=== PATIENT | female | born 1955 | race African-American/Black ===

== ENCOUNTER 2023-11-20 20:54 | Inpatient (IN) | payer MEDICARE, SELFPAY ==
[2023-11-20 21:17] VITALS: BMI 37.5
--- NOTE | 2023-11-20 21:34 | ADMGEN ---
This patient, Lesly Chacon, was admitted to 2nd Floor Room 204-1. Patient oriented to hospital policies and general routines including ID bracelet, bed and alarms, visiting hours, pain management, procedures, bathroom and other care routines, personal items, smoking policy, room service/diet, and visiting hours. Information on how to activate the Rapid Response Team has been discussed. Patient/Family are encouraged to report perceived risks to care and to ask questions if they do not understand what they are told or what they should do.
--- NOTE | 2023-11-20 21:37 | PC.NURSE ---
Patient arrived to unit at 2114.
[2023-11-20 22:03] VITALS: O2SAT 98
[2023-11-20 22:41] VITALS: BP 94/56; PULSE 84; RESP 16; TEMP 36.4; O2SAT 96
[2023-11-21] VITALS: RESP 16; TEMP 36.5
[2023-11-21 08:00] VITALS: BP 88/53; PULSE 97; RESP 14; TEMP 37; O2SAT 97
[2023-11-21 09:11] LABS: Hematocrit 27.7 % (35.0-42.0); Hemoglobin 8.7 g/dL (11.7-13.8); Mean Corpuscular HGB Conc 31.4 g/dL (32.0-36.0); Mean Corpuscular Hemoglobin 26.8 pg (27.0-31.0); Mean Corpuscular Volume 85.2 fL (78.0-102.0); Mean Platelet Volume 11.7 fl (9.2-11.8); Platelet Count Result 210 K/mm3 (150-420); Red Blood Count 3.25 M/mm3 (4.20-5.40); Red Cell Distribution Width 23.8 % (11.6-14.4); White Blood Count 12.3 K/mm3 (4.8-10.8)
[2023-11-21 09:20] LABS: Anion Gap 4 mmol/L (8-16); Blood Urea Nitrogen 15 mg/dL (7-18); Calcium 8.6 mg/dL (8.5-10.1); Carbon Dioxide 34 mmol/L (21-32); Chloride 98 mmol/L (98-108); Estimated CRCL calculation 45 ml/min; Estimated Glomerular Filt Rate 54; Glucose 154 mg/dL (70-99); Osmolality Calculated 285 mOsm/kg (285-295); Potassium 3.6 mmol/L (3.5-5.1); Sodium 136 mmol/L (136-145)
--- NOTE | 2023-11-21 10:23 | PM.IMHP ---
H&P: HPI History of Present Illness Date/Time: 11/21/23 10:23 Chief Complaint: Swing Patient , Massive PE Narrative: This is a 68 year old female that has been admitted to our swing bed following a prolonged hospitalization due to a massive pulmonary embolism accompanied by heart strain. Although acute treatment for pulmonary embolus has been completed, Mrs Chacon still is experiencing overall weakness. Additionally she has a past medical history of Myocardial infarct, Diabetes, congestive heart failure. Patient has reported to myself that she is unable to ambulate or she has not ambulated in a few weeks and does not feel like she is capable of ambulation at this time.Patient blood pressure seems to fluctuate between hypotension or baseline in the 90 systolic with diastolic noted to be in the 50's. Positive bowel sounds noted. Patient legs demonstrate weakness upon examination . Despite these challenges , the patient is able to assist with her ADL's. Patient is able to eat and drink without any difficulties, no shortness of breath or any other complaints noted at this time. We will continue to monitor patient her labs await on her assessment by PT/OT for their assessment of her abilities and the plan of care. Review of Systems Review of Systems: weakness, strength All systems reviewed & are unremarkable except as noted in HPI and below PMFSH Family History Family History (Updated 11/20/23 @ 21:28 by Rose Restrepo RN) Other Acute myocardial infarction Congestive heart failure Diabetes mellitus History of blood clots Social History Social History Smoking status: Never smoker Alcohol intake: never Substance use: never Substance use type: does not use Do You Feel Safe in your Home?: Yes Lack of Transportation: No Lack of Food: Never True Current Housing: I Have Housing Concerned About Future Housing: No Difficulty Paying Gas/Electric Bills: No Difficulty Paying for Meds: No Currently Unemployed: No Education: Master's Degree or Higher Difficulty w/ Childcare or Family Care: No Spiritual care concerns: No Meds Home Medications and Allergies Home Medications Medication Instructions Recorded Confirmed Type acetaminophen 325 mg tablet 650 mg PO Q4H PRN Pain 11/21/23 11/21/23 History alendronate 70 mg tablet 70 mg PO WEEKLY 11/21/23 11/21/23 History amiloride 5 mg tablet 5 mg PO BID 11/21/23 11/21/23 History apixaban 5 mg tablet 5 mg PO BID 11/21/23 11/21/23 History bisacodyl 10 mg rectal suppository 10 mg RECTAL DAILY PRN Constipation 11/21/23 11/21/23 History (Dulcolax (bisacodyl)) bumetanide 2 mg tablet 2 mg PO BID 11/21/23 11/21/23 History cholecalciferol (vitamin D3) 125 5,000 unit PO DAILY 11/21/23 11/21/23 History mcg (5,000 unit) tablet (Vitamin D3) ferrous sulfate 325 mg (65 mg 325 mg PO BID 11/21/23 11/21/23 History iron) tablet folic acid 1 mg tablet 1 mg PO DAILY 11/21/23 11/21/23 History gabapentin 100 mg capsule 100 mg PO TID 11/21/23 11/21/23 History hydrocortisone 10 mg tablet 10 mg PO BID 11/21/23 11/21/23 History levothyroxine 25 mcg tablet 25 mcg PO QAM 11/21/23 11/21/23 History (Synthroid) miconazole nitrate 2 % topical 1 applic topical BID 11/21/23 11/21/23 History cream midodrine 10 mg tablet 10 mg PO TID 11/21/23 11/21/23 History omeprazole 20 mg tablet,delayed 20 mg PO DAILY 11/21/23 11/21/23 History release polyethylene glycol 3350 17 17 g PO DAILY 11/21/23 11/21/23 History gram/dose oral powder (Miralax) potassium chloride 20 mEq 20 meq PO DAILY 11/21/23 11/23/23 History tablet,extended release potassium phosphate, monobasic 500 500 mg PO BID 11/21/23 11/21/23 History mg soluble tablet (K-Phos Original) rosuvastatin 20 mg tablet 20 mg PO DAILY 11/21/23 11/21/23 History senna-docusate sodium tablet 8.6 - 50 tablet PO BID 11/21/23 11/21/23 History thiamine HCl (vitamin B1) 100 mg 100 mg PO DAILY 11/21/23 11/21/23 History
[2023-11-21] MEDS: MIDODRINE HCL 2.5 MG TABLET 10 MG PO ×2 (13:08→18:05)
[2023-11-21] MEDS: PANTOPRAZOLE 40 MG TABLET PO (13:09)
[2023-11-21] MEDS: POTASSIUM/PHOSPHORUS/SODIUM 1.5 GM PACKET 1 PACKET PO (13:09)
[2023-11-21] MEDS: GABAPENTIN 100 MG CAPSULE PO ×2 (13:09→18:05)
[2023-11-21 16:30] VITALS: BP 88/56; PULSE 94; RESP 16; TEMP 36.9; O2SAT 98
[2023-11-21] MEDS: FERROUS SULFATE 325 MG TABLET DR BY MOUTH (18:05)
[2023-11-21] MEDS: APIXABAN 2.5 MG TABLET 5 MG PO (18:05)
[2023-11-21] MEDS: HYDROCORTISONE 10 MG TABLET PO (18:06)
[2023-11-21] MEDS: BUMETANIDE 1 MG TABLET 2 MG PO (18:06)
[2023-11-21] MEDS: MICONAZOLE NITRATE 2% CREAM 30 GM TUBE 1 APPLIC TOPICAL (18:07)
[2023-11-21 23:45] VITALS: BP 81/44; PULSE 88; RESP 13; TEMP 37.1; O2SAT 96
[2023-11-22] MEDS: LEVOTHYROXINE SODIUM 25 MCG TABLET PO (07:08)
[2023-11-22 08:00] VITALS: BP 92/62; PULSE 98; RESP 14; TEMP 36.2; O2SAT 99
[2023-11-22] MEDS: FERROUS SULFATE 325 MG TABLET DR BY MOUTH ×2 (08:11→18:29)
[2023-11-22] MEDS: MIDODRINE HCL 2.5 MG TABLET 10 MG PO ×3 (08:11→17:00)
[2023-11-22] MEDS: FOLIC ACID 1 MG TABLET PO (08:58)
[2023-11-22] MEDS: ROSUVASTATIN 10 MG TABLET 20 MG PO (08:58)
[2023-11-22] MEDS: APIXABAN 2.5 MG TABLET 5 MG PO ×2 (08:58→18:29)
[2023-11-22] MEDS: PANTOPRAZOLE 40 MG TABLET PO (08:59)
[2023-11-22] MEDS: POTASSIUM/PHOSPHORUS/SODIUM 1.5 GM PACKET 1 PACKET PO (08:59)
[2023-11-22] MEDS: polyethylene glycoL 3350 17 GM POWD.PACK PO (08:59)
[2023-11-22] MEDS: GABAPENTIN 100 MG CAPSULE PO ×3 (08:59→18:29)
[2023-11-22] MEDS: HYDROCORTISONE 10 MG TABLET PO ×2 (09:00→18:29)
[2023-11-22] MEDS: MICONAZOLE NITRATE 2% CREAM 30 GM TUBE 1 APPLIC TOPICAL (09:00)
[2023-11-22] MEDS: THIAMINE HCL 100 MG TABLET PO (09:02)
[2023-11-22] MEDS: BUMETANIDE 1 MG TABLET 2 MG PO ×2 (09:02→18:30)
[2023-11-22 16:35] VITALS: BP 91/51; PULSE 87; RESP 16; TEMP 36.4; O2SAT 98
[2023-11-22] MEDS: aMILoride HCL 5 MG TABLET PO (18:29)
[2023-11-23] VITALS: BP 92/56; PULSE 79; RESP 16; TEMP 36.3; O2SAT 98
[2023-11-23] MEDS: LEVOTHYROXINE SODIUM 25 MCG TABLET PO (06:23)
[2023-11-23 08:00] VITALS: BP 87/50; PULSE 85; RESP 18; TEMP 36.5; O2SAT 98
[2023-11-23] MEDS: polyethylene glycoL 3350 17 GM POWD.PACK PO (08:18)
[2023-11-23] MEDS: POTASSIUM/PHOSPHORUS/SODIUM 1.5 GM PACKET 1 PACKET PO (08:18)
[2023-11-23] MEDS: MIDODRINE HCL 2.5 MG TABLET 10 MG PO ×3 (08:19→16:18)
[2023-11-23] MEDS: HYDROCORTISONE 10 MG TABLET PO ×2 (08:21→16:22)
[2023-11-23] MEDS: CHOLECALCIFEROL 5,000 UNITS TABLET 5000 UNITS PO (08:21)
[2023-11-23] MEDS: aMILoride HCL 5 MG TABLET PO ×2 (08:21→16:20)
[2023-11-23] MEDS: APIXABAN 2.5 MG TABLET 5 MG PO ×2 (08:22→16:20)
[2023-11-23] MEDS: ROSUVASTATIN 10 MG TABLET 20 MG PO (08:22)
[2023-11-23] MEDS: PANTOPRAZOLE 40 MG TABLET PO (08:22)
[2023-11-23] MEDS: FOLIC ACID 1 MG TABLET PO (08:23)
[2023-11-23] MEDS: FERROUS SULFATE 325 MG TABLET DR BY MOUTH ×2 (08:23→16:19)
[2023-11-23] MEDS: THIAMINE HCL 100 MG TABLET PO (08:23)
[2023-11-23] MEDS: GABAPENTIN 100 MG CAPSULE PO ×3 (08:24→16:20)
[2023-11-23] MEDS: MICONAZOLE NITRATE 2% CREAM 30 GM TUBE 1 APPLIC TOPICAL ×2 (08:24→16:30)
[2023-11-23] MEDS: ALENDRONATE SODIUM 70 MG TABLET PO (08:44)
[2023-11-23] MEDS: BUMETANIDE 1 MG TABLET 2 MG PO ×2 (08:44→16:26)
--- NOTE | 2023-11-23 09:16 | PC.NURSE ---
Dressing changed to patient's L heel due to it coming off during patient's bath. Patient tolerated well.
[2023-11-23 16:00] VITALS: BP 95/57; PULSE 79; RESP 16; TEMP 36.4; O2SAT 100
[2023-11-24] VITALS: BP 98/59; PULSE 80; RESP 16; TEMP 36.4; O2SAT 99
[2023-11-24] MEDS: LEVOTHYROXINE SODIUM 25 MCG TABLET PO (05:45)
[2023-11-24 07:57] VITALS: BP 93/57; PULSE 80; RESP 16; TEMP 36.1; O2SAT 99
[2023-11-24] MEDS: POTASSIUM/PHOSPHORUS/SODIUM 1.5 GM PACKET 1 PACKET PO (08:40)
[2023-11-24] MEDS: polyethylene glycoL 3350 17 GM POWD.PACK PO (08:40)
[2023-11-24] MEDS: aMILoride HCL 5 MG TABLET PO ×2 (08:42→16:27)
[2023-11-24] MEDS: HYDROCORTISONE 10 MG TABLET PO ×2 (08:42→16:28)
[2023-11-24] MEDS: BUMETANIDE 1 MG TABLET 2 MG PO ×2 (08:42→16:27)
[2023-11-24] MEDS: CHOLECALCIFEROL 5,000 UNITS TABLET 5000 UNITS PO (08:43)
[2023-11-24] MEDS: MIDODRINE HCL 2.5 MG TABLET 10 MG PO ×3 (08:43→16:26)
[2023-11-24] MEDS: APIXABAN 2.5 MG TABLET 5 MG PO ×2 (08:44→16:28)
[2023-11-24] MEDS: ROSUVASTATIN 10 MG TABLET 20 MG PO (08:44)
[2023-11-24] MEDS: GABAPENTIN 100 MG CAPSULE PO ×3 (08:45→16:28)
[2023-11-24] MEDS: FOLIC ACID 1 MG TABLET PO (08:45)
[2023-11-24] MEDS: PANTOPRAZOLE 40 MG TABLET PO (08:45)
[2023-11-24] MEDS: FERROUS SULFATE 325 MG TABLET DR BY MOUTH ×2 (08:45→16:28)
[2023-11-24] MEDS: THIAMINE HCL 100 MG TABLET PO (08:45)
[2023-11-24 16:00] VITALS: BP 108/64; PULSE 93; RESP 16; TEMP 36.6; O2SAT 98
--- NOTE | 2023-11-24 17:10 | PC.NURSE ---
Patient had 1 very small bowel movement that was dark brown/green today. Patient denies abdominal pain due to constipation, but states that she usually goes more than she has been. BS active in all quadrants.
[2023-11-25] VITALS: BP 102/69; PULSE 778; RESP 18; TEMP 36.6; O2SAT 97
[2023-11-25] MEDS: LEVOTHYROXINE SODIUM 25 MCG TABLET PO (06:12)
--- NOTE | 2023-11-25 06:30 | PC.NURSE ---
Patient was sitting in the recliner when the shift started. She had been there most of the day. Patient stated that she was not in any pain, and did not need anything at that time. She stated that she wanted to go to bed around 2129. Patient put her dentures in a cup and washed her hands and face to prepare for bed. Patient used the Santos Stedy to move to the commode, and then to the bed. Patient needed an assist of 2 to stand from the chair to the santos stedy. However, she only needed an assist of 1 to stand from the commode and to stand at the bed. Patient slept well through the night. She had a good output in the cam. Patient was very pleasant and cooperative throughout the night.
[2023-11-25 08:00] VITALS: BP 82/50; PULSE 96; RESP 14; TEMP 36.4; O2SAT 100
[2023-11-25] MEDS: MIDODRINE HCL 2.5 MG TABLET 10 MG PO ×3 (08:30→16:31)
[2023-11-25] MEDS: polyethylene glycoL 3350 17 GM POWD.PACK PO (09:03)
[2023-11-25] MEDS: POTASSIUM/PHOSPHORUS/SODIUM 1.5 GM PACKET 1 PACKET PO (09:03)
[2023-11-25] MEDS: BUMETANIDE 1 MG TABLET 2 MG PO ×2 (09:04→16:33)
[2023-11-25] MEDS: APIXABAN 2.5 MG TABLET 5 MG PO ×2 (09:04→16:32)
[2023-11-25] MEDS: GABAPENTIN 100 MG CAPSULE PO ×3 (09:04→16:33)
[2023-11-25] MEDS: FERROUS SULFATE 325 MG TABLET DR BY MOUTH ×2 (09:04→16:33)
[2023-11-25] MEDS: FOLIC ACID 1 MG TABLET PO (09:05)
[2023-11-25] MEDS: PANTOPRAZOLE 40 MG TABLET PO (09:05)
[2023-11-25] MEDS: ROSUVASTATIN 10 MG TABLET 20 MG PO (09:05)
[2023-11-25] MEDS: CHOLECALCIFEROL 5,000 UNITS TABLET 5000 UNITS PO (09:06)
[2023-11-25] MEDS: aMILoride HCL 5 MG TABLET PO ×2 (09:06→17:09)
[2023-11-25] MEDS: THIAMINE HCL 100 MG TABLET PO (09:06)
[2023-11-25] MEDS: HYDROCORTISONE 10 MG TABLET PO ×2 (09:06→16:33)
[2023-11-25 16:00] VITALS: BP 105/62; PULSE 97; RESP 16; TEMP 36.9; O2SAT 99
[2023-11-25 23:15] VITALS: BP 91/54; PULSE 87; RESP 15; TEMP 36.4; O2SAT 99
[2023-11-26 05:21] LABS: Basophils Absolute Auto 0.04 K/mm3 (0.00-0.10); Basophils Percent Auto 0.4 % (0.0-1.0); Eosinophils Absolute Auto 0.22 K/mm3 (0.02-0.50); Eosinophils Percent Auto 2.4 % (1.0-6.0); Hematocrit 23.9 % (35.0-42.0); Hemoglobin 7.3 g/dL (11.7-13.8); Immature Granulocyte Absolute 0.04 K/mm3 (0.00-0.00); Immature Granulocyte Percent A 0.4 % (0.0-0.0); Lymphocytes Absolute Auto 1.53 K/mm3 (1.10-4.50); Lymphocytes Percent Auto 16.5 % (18.0-42.0); Mean Corpuscular HGB Conc 30.5 g/dL (32.0-36.0); Mean Corpuscular Volume 88.5 fL (78.0-102.0); Mean Platelet Volume 11.4 fl (9.2-11.8); Monocytes Absolute Auto 1.17 K/mm3 (0.10-0.90); Monocytes Percent Auto 12.6 % (2.0-11.0); Neutrophils Absolute Auto 6.3 K/mm3 (1.7-7.2); Neutrophils Percent Auto 67.7 % (50.0-70.0); Nucleated Red Blood Cells Absolute Auto 0.02 K/mm3 (0.00-0.00); Nucleated Red Blood Cells Perc 0.2 % (0-0.0); Platelet Count Result 236 K/mm3 (150-420); Red Cell Distribution Width 23.9 % (11.6-14.4); White Blood Count 9.3 K/mm3 (4.8-10.8)
[2023-11-26 05:30] LABS: Anion Gap 6 mmol/L (8-16); Blood Urea Nitrogen 16 mg/dL (7-18); Calcium 8.2 mg/dL (8.5-10.1); Carbon Dioxide 34 mmol/L (21-32); Chloride 101 mmol/L (98-108); Estimated CRCL calculation 43 ml/min; Estimated Glomerular Filt Rate 58; Glucose 114 mg/dL (70-99); Osmolality Calculated 294 mOsm/kg (285-295); Potassium 3.5 mmol/L (3.5-5.1); Sodium 141 mmol/L (136-145)
[2023-11-26] MEDS: LEVOTHYROXINE SODIUM 25 MCG TABLET PO (06:36)
[2023-11-26 08:00] VITALS: BP 96/53; PULSE 85; RESP 14; TEMP 36.4; O2SAT 99
[2023-11-26] MEDS: MIDODRINE HCL 2.5 MG TABLET 10 MG PO ×3 (08:05→17:58)
[2023-11-26] MEDS: FERROUS SULFATE 325 MG TABLET DR BY MOUTH ×2 (08:06→17:58)
[2023-11-26 08:28] LABS: Folic Acid 18.5 ng/mL (8.6->20); Iron 73 ug/dL (50-170); Percent Iron Saturation 43 % (12-57); Vitamin B12 715 pg/mL (193-986)
[2023-11-26] MEDS: ROSUVASTATIN 10 MG TABLET 20 MG PO (09:04)
[2023-11-26] MEDS: POTASSIUM/PHOSPHORUS/SODIUM 1.5 GM PACKET 1 PACKET PO (09:04)
[2023-11-26] MEDS: BUMETANIDE 1 MG TABLET 2 MG PO ×2 (09:05→17:59)
[2023-11-26] MEDS: CHOLECALCIFEROL 5,000 UNITS TABLET 5000 UNITS PO (09:06)
[2023-11-26] MEDS: APIXABAN 2.5 MG TABLET 5 MG PO ×2 (09:06→17:58)
[2023-11-26] MEDS: FOLIC ACID 1 MG TABLET PO (09:07)
[2023-11-26] MEDS: THIAMINE HCL 100 MG TABLET PO (09:07)
[2023-11-26] MEDS: GABAPENTIN 100 MG CAPSULE PO ×3 (09:07→17:58)
[2023-11-26] MEDS: HYDROCORTISONE 10 MG TABLET PO ×2 (09:07→17:58)
[2023-11-26] MEDS: PANTOPRAZOLE 40 MG TABLET PO (09:07)
[2023-11-26] MEDS: aMILoride HCL 5 MG TABLET PO ×2 (09:08→17:58)
[2023-11-26 16:30] VITALS: BP 94/57; PULSE 90; RESP 16; TEMP 36.2; O2SAT 99
[2023-11-26 23:23] VITALS: RESP 16
[2023-11-27] MEDS: LEVOTHYROXINE SODIUM 25 MCG TABLET PO (06:59)
[2023-11-27 08:40] VITALS: BP 91/55; PULSE 83; RESP 16; TEMP 36.4; O2SAT 99
--- NOTE | 2023-11-27 09:03 | PM.IMPN ---
Progress Note: A&P Assessment and Plan (1) Generalized weakness: Code(s): R53.1 - Weakness Status: Acute Assessment and Plan: Swing bed admission for PT OT for generalized weakness after prolonged acute care hospitalization for pulmonary embolism chronic anemia and multiple other resolved acute care problems (2) Pulmonary embolism: Code(s): I26.99 - Other pulmonary embolism without acute cor pulmonale Status: Acute Assessment and Plan: Continue Eliquis b.i.d. (3) Chronic anemia: Code(s): D64.9 - Anemia, unspecified Status: Acute Assessment and Plan: Hemoglobin 8.7 on admission recheck due on 11/26 hemoglobin was 7.3. Monitor for bleeding. Recheck on 11/30 (4) emt intermediate current use of anticoagulant: Code(s): Z79.01 - skilled nursing (current) use of anticoagulants Status: Acute Assessment and Plan: Continue Eliquis (5) Urinary retention: Code(s): R33.9 - Retention of urine, unspecified Status: Acute Assessment and Plan: Discontinue Bach catheter, bladder scan as needed (6) Hypothyroidism: Code(s): E03.9 - Hypothyroidism, unspecified Status: Acute Assessment and Plan: Continue Synthroid Plan Continue swing bed admission, patient is progressing with therapy. Discontinue Bach catheter. Ambulate to restroom rather than bedside commode whenever possible. Time Spent With Patient Time with patient: 25 - 35 minutes Subjective Date/time seen: 11/27/23 09:03 Interval history: This is a 68-year-old female patient swing bed admission for PT and OT due to generalized weakness after prolonged acute care hospitalization with multiple subsequent problems including multifocal pneumonia and pulmonary embolism. Patient continues on Eliquis for PE. She is progressing with therapy. Patient still has Bach catheter place from prior acute care hospitalization discharge. Review of notes shows that it was in place for aggressive diuresis with report urinary retention. We will attempt voiding trial by removing Bach catheter today bladder scanning as needed. Review of Systems Review of Systems: All systems reviewed & are unremarkable except as noted in HPI and below Exam Narrative: GENERAL: Well-appearing, well-nourished, and in no acute distress. HEAD: Normocephalic, atraumatic. ENT:? Mucous membranes moist. CHEST: Clear to auscultation.? No respiratory distress. HEART: Regular rate and rhythm. ? Normal peripheral pulses. ABDOMEN: Soft, nontender, nondistended. Bach catheter in place with slightly cloudy yellow urine EXTREMITIES: Normal range of motion. Bilateral mild lower extremity edema. Heel pressure ulcer skin intact SKIN: Warm dry normal color NEURO: Alert and oriented x3. PSYCH: Normal mood and affect Objective Data Vital Signs Vital Signs: Vital Signs - 24 hr 11/26/23 16:30 11/26/23 23:23 Temperature 36.2 C L Pulse Rate 90 Respiratory Rate 16 16 Blood Pressure 94/57 L Pulse Oximetry 99 Oxygen Delivery Room Air Intake/Output Intake/Output: Intake & Output 11/24/23 11/25/23 11/26/23 11/27/23 23:59 23:59 23:59 23:59 Intake Total 2009 1794 1440 780 Output Total 2624 1900 1650 1150 [facility] -615 -105 -210 -370 Meds/Results Medications: Active Medications Generic Name Dose Route Start Last Admin Trade Name Freq PRN Reason Stop Dose Admin Acetaminophen 650 mg 11/21/23 10:47 Acetaminophen 325 Mg Tablet PO Q4H PRN Pain Alendronate Sodium 70 mg 11/23/23 09:00 11/23/23 08:44 Alendronate Sodium 70 Mg Tablet PO 70 mg Mo@0900 LAMBERTO Administration Amiloride HCl 5 mg 11/21/23 17:00 11/26/23 17:58 Amiloride Hcl 5 Mg Tablet PO 5 mg BID LAMBERTO Administration Apixaban 5 mg 11/21/23 17:00 11/26/23 17:58 Apixaban 2.5 Mg Tablet PO 5 mg BID LAMBERTO Administration Bisacodyl 10 mg 11/21/23 10:47 Bisacodyl 10 Mg Suppository RECTAL
[2023-11-27] MEDS: POTASSIUM/PHOSPHORUS/SODIUM 1.5 GM PACKET 1 PACKET PO (09:22)
[2023-11-27] MEDS: ROSUVASTATIN 10 MG TABLET 20 MG PO (09:23)
[2023-11-27] MEDS: APIXABAN 2.5 MG TABLET 5 MG PO ×2 (09:23→17:55)
[2023-11-27] MEDS: MIDODRINE HCL 2.5 MG TABLET 10 MG PO ×3 (09:23→17:55)
[2023-11-27] MEDS: BUMETANIDE 1 MG TABLET 2 MG PO ×2 (09:23→17:55)
[2023-11-27] MEDS: FERROUS SULFATE 325 MG TABLET DR BY MOUTH ×2 (09:23→17:54)
[2023-11-27] MEDS: aMILoride HCL 5 MG TABLET PO ×2 (09:24→17:54)
[2023-11-27] MEDS: CHOLECALCIFEROL 5,000 UNITS TABLET 5000 UNITS PO (09:24)
[2023-11-27] MEDS: FOLIC ACID 1 MG TABLET PO (09:24)
[2023-11-27] MEDS: PANTOPRAZOLE 40 MG TABLET PO (09:24)
[2023-11-27] MEDS: THIAMINE HCL 100 MG TABLET PO (09:24)
[2023-11-27] MEDS: GABAPENTIN 100 MG CAPSULE PO ×3 (09:24→17:55)
[2023-11-27] MEDS: HYDROCORTISONE 10 MG TABLET PO ×2 (09:24→17:54)
[2023-11-27 16:35] VITALS: BP 97/56; PULSE 80; RESP 16; TEMP 36.3; O2SAT 100
[2023-11-28] VITALS: BP 93/58; PULSE 99; RESP 18; TEMP 36.6; O2SAT 99
[2023-11-28] MEDS: LEVOTHYROXINE SODIUM 25 MCG TABLET PO (05:34)
[2023-11-28 08:00] VITALS: BP 91/55; PULSE 83; RESP 16; TEMP 36.4; O2SAT 99
[2023-11-28] MEDS: THIAMINE HCL 100 MG TABLET PO (08:50)
[2023-11-28] MEDS: HYDROCORTISONE 10 MG TABLET PO ×2 (08:50→17:05)
[2023-11-28] MEDS: ROSUVASTATIN 10 MG TABLET 20 MG PO (08:50)
[2023-11-28] MEDS: FOLIC ACID 1 MG TABLET PO (08:51)
[2023-11-28] MEDS: aMILoride HCL 5 MG TABLET PO ×2 (08:51→16:59)
[2023-11-28] MEDS: GABAPENTIN 100 MG CAPSULE PO ×3 (08:51→16:58)
[2023-11-28] MEDS: APIXABAN 2.5 MG TABLET 5 MG PO ×2 (08:52→16:59)
[2023-11-28] MEDS: PANTOPRAZOLE 40 MG TABLET PO (08:52)
[2023-11-28] MEDS: BUMETANIDE 1 MG TABLET 2 MG PO ×2 (08:52→16:58)
[2023-11-28] MEDS: FERROUS SULFATE 325 MG TABLET DR BY MOUTH ×2 (08:52→16:58)
[2023-11-28] MEDS: CHOLECALCIFEROL 5,000 UNITS TABLET 5000 UNITS PO (08:53)
[2023-11-28] MEDS: POTASSIUM/PHOSPHORUS/SODIUM 1.5 GM PACKET 1 PACKET PO (08:53)
[2023-11-28] MEDS: MIDODRINE HCL 2.5 MG TABLET 10 MG PO ×3 (08:55→16:57)
[2023-11-28 16:00] VITALS: BP 90/52; PULSE 86; RESP 16; TEMP 36.2; O2SAT 99
[2023-11-29] VITALS: BP 96/63; PULSE 94; RESP 16; TEMP 36.3; O2SAT 94
[2023-11-29] MEDS: LEVOTHYROXINE SODIUM 25 MCG TABLET PO (05:49)
--- NOTE | 2023-11-29 06:12 | PC.NURSE ---
Patient was in her recliner when shift started. She was able to walk to the commode w/ gait belt, wheeled walker, and assist of 1. She had some difficulty standing up from the recliner, needing to rock to get up, but had no difficulty getting up from the commode. Patient had 3 unmeasured voids, with a lot out with each void. Patient slept well, other than getting up to use the commode. Her vitals were WNL except for her temperature, which was low, and her blood pressure, which was soft, at 96/63.
[2023-11-29 08:00] VITALS: BP 87/56; PULSE 89; RESP 16; TEMP 36.7; O2SAT 99
[2023-11-29] MEDS: ROSUVASTATIN 10 MG TABLET 20 MG PO (08:52)
[2023-11-29] MEDS: HYDROCORTISONE 10 MG TABLET PO ×2 (08:52→16:59)
[2023-11-29] MEDS: BUMETANIDE 1 MG TABLET 2 MG PO ×2 (08:53→17:00)
[2023-11-29] MEDS: aMILoride HCL 5 MG TABLET PO ×2 (08:53→16:59)
[2023-11-29] MEDS: PANTOPRAZOLE 40 MG TABLET PO (08:54)
[2023-11-29] MEDS: POTASSIUM/PHOSPHORUS/SODIUM 1.5 GM PACKET 1 PACKET PO (08:54)
[2023-11-29] MEDS: APIXABAN 2.5 MG TABLET 5 MG PO ×2 (08:55→17:00)
[2023-11-29] MEDS: GABAPENTIN 100 MG CAPSULE PO ×3 (08:55→16:59)
[2023-11-29] MEDS: FERROUS SULFATE 325 MG TABLET DR BY MOUTH ×2 (08:55→16:59)
[2023-11-29] MEDS: MIDODRINE HCL 2.5 MG TABLET 10 MG PO ×3 (08:56→16:58)
[2023-11-29] MEDS: CHOLECALCIFEROL 5,000 UNITS TABLET 5000 UNITS PO (08:56)
[2023-11-29] MEDS: THIAMINE HCL 100 MG TABLET PO (08:57)
[2023-11-29] MEDS: FOLIC ACID 1 MG TABLET PO (08:57)
[2023-11-29 16:00] VITALS: BP 90/50; PULSE 84; RESP 16; TEMP 36.2; O2SAT 94
[2023-11-30] VITALS: BP 94/65; PULSE 96; RESP 16; TEMP 36.3; O2SAT 96
[2023-11-30 05:39] LABS: Hemoglobin 8.1 g/dL (11.7-13.8); Mean Corpuscular HGB Conc 31.2 g/dL (32.0-36.0); Mean Corpuscular Hemoglobin 27.1 pg (27.0-31.0); Mean Platelet Volume 10.9 fl (9.2-11.8); Platelet Count Result 268 K/mm3 (150-420); Red Blood Count 2.99 M/mm3 (4.20-5.40); Red Cell Distribution Width 22.8 % (11.6-14.4); White Blood Count 7.9 K/mm3 (4.8-10.8)
[2023-11-30] MEDS: LEVOTHYROXINE SODIUM 25 MCG TABLET PO (05:43)
--- NOTE | 2023-11-30 05:59 | PC.NURSE ---
Patient was sitting in recliner at the beginning of the shift. She uses call light to ask for help to get to commode. Called, and ambulated from the chair to the commode, with assist of 1, gait belt and wheeled walker. Able to ambulate to bed in same manner. Patient was able to sleep, but did get up 4 times to use the commode. Able to urinate a great deal when on the commode. Patient able to go back to sleep when returned to bed. Patient's vital signs were similar to last nights, with Temperature and Blood Pressure somewhat low, and everything else WNL. Patient slept well last night. She is up now, sitting in the recliner.
[2023-11-30 06:08] LABS: Alanine Aminotransferase 37 U/L (14-59); Albumin Level 1.8 g/dL (3.4-5.0); Alkaline Phosphatase 205 U/L (46-116); Anion Gap 9 mmol/L (8-16); Aspartate Amino Transferase 34 U/L (15-37); Bilirubin,Total 0.6 mg/dL (0.00-1.00); Blood Urea Nitrogen 15 mg/dL (7-18); Calcium 8.2 mg/dL (8.5-10.1); Carbon Dioxide 26 mmol/L (21-32); Chloride 102 mmol/L (98-108); Estimated CRCL calculation 49 ml/min; Estimated Glomerular Filt Rate > 60; Glucose 120 mg/dL (70-99); Osmolality Calculated 285 mOsm/kg (285-295); Potassium 3.2 mmol/L (3.5-5.1); Sodium 137 mmol/L (136-145); Total Protein 6.8 g/dL (6.4-8.2)
[2023-11-30] MEDS: POTASSIUM CHLORIDE 20 MEQ ER TABLET 40 MEQ PO (07:35)
[2023-11-30 08:00] VITALS: BP 94/63; PULSE 97; RESP 14; TEMP 36.1; O2SAT 97
[2023-11-30] MEDS: FERROUS SULFATE 325 MG TABLET DR BY MOUTH ×2 (08:12→17:53)
[2023-11-30] MEDS: MIDODRINE HCL 2.5 MG TABLET 10 MG PO ×3 (08:12→17:54)
[2023-11-30] MEDS: POTASSIUM/PHOSPHORUS/SODIUM 1.5 GM PACKET 1 PACKET PO (09:10)
[2023-11-30] MEDS: polyethylene glycoL 3350 17 GM POWD.PACK PO (09:10)
[2023-11-30] MEDS: CHOLECALCIFEROL 5,000 UNITS TABLET 5000 UNITS PO (09:13)
[2023-11-30] MEDS: THIAMINE HCL 100 MG TABLET PO (09:15)
[2023-11-30] MEDS: ROSUVASTATIN 10 MG TABLET 20 MG PO (09:15)
[2023-11-30] MEDS: aMILoride HCL 5 MG TABLET PO ×2 (09:15→17:54)
[2023-11-30] MEDS: BUMETANIDE 1 MG TABLET 2 MG PO ×2 (09:15→17:54)
[2023-11-30] MEDS: HYDROCORTISONE 10 MG TABLET PO ×2 (09:15→17:54)
[2023-11-30] MEDS: GABAPENTIN 100 MG CAPSULE PO ×3 (09:15→17:54)
[2023-11-30] MEDS: APIXABAN 2.5 MG TABLET 5 MG PO ×2 (09:15→17:54)
[2023-11-30] MEDS: PANTOPRAZOLE 40 MG TABLET PO (09:15)
[2023-11-30] MEDS: FOLIC ACID 1 MG TABLET PO (09:20)
[2023-11-30 16:35] VITALS: BP 101/57; PULSE 96; RESP 16; TEMP 36.8; O2SAT 100
[2023-12-01] VITALS: BP 105/55; PULSE 82; RESP 82; TEMP 36.7; O2SAT 96
[2023-12-01] MEDS: LEVOTHYROXINE SODIUM 25 MCG TABLET PO (06:25)
[2023-12-01] MEDS: ALENDRONATE SODIUM 70 MG TABLET PO (06:55)
[2023-12-01 07:58] VITALS: BP 87/49; PULSE 89; RESP 14; TEMP 36.3; O2SAT 100
[2023-12-01] MEDS: MIDODRINE HCL 2.5 MG TABLET 10 MG PO ×3 (08:00→17:30)
[2023-12-01] MEDS: FERROUS SULFATE 325 MG TABLET DR BY MOUTH ×2 (08:18→17:30)
[2023-12-01] MEDS: POTASSIUM/PHOSPHORUS/SODIUM 1.5 GM PACKET 1 PACKET PO (09:15)
[2023-12-01] MEDS: polyethylene glycoL 3350 17 GM POWD.PACK PO (09:15)
[2023-12-01] MEDS: BUMETANIDE 1 MG TABLET 2 MG PO ×2 (09:16→17:31)
[2023-12-01] MEDS: FOLIC ACID 1 MG TABLET PO (09:16)
[2023-12-01] MEDS: APIXABAN 2.5 MG TABLET 5 MG PO ×2 (09:17→17:31)
[2023-12-01] MEDS: ROSUVASTATIN 10 MG TABLET 20 MG PO (09:17)
[2023-12-01] MEDS: aMILoride HCL 5 MG TABLET PO ×2 (09:17→17:31)
[2023-12-01] MEDS: HYDROCORTISONE 10 MG TABLET PO ×2 (09:18→17:31)
[2023-12-01] MEDS: CHOLECALCIFEROL 5,000 UNITS TABLET 5000 UNITS PO (09:18)
[2023-12-01] MEDS: PANTOPRAZOLE 40 MG TABLET PO (09:18)
[2023-12-01] MEDS: GABAPENTIN 100 MG CAPSULE PO ×3 (09:19→17:30)
[2023-12-01] MEDS: THIAMINE HCL 100 MG TABLET PO (09:24)
[2023-12-01 16:35] VITALS: BP 104/71; PULSE 95; RESP 16; TEMP 36.2; O2SAT 100
[2023-12-02] VITALS: BP 89/42; PULSE 80; RESP 18; TEMP 36.6; O2SAT 98
[2023-12-02] MEDS: LEVOTHYROXINE SODIUM 25 MCG TABLET PO (06:05)
[2023-12-02 08:00] VITALS: BP 86/45; PULSE 78; RESP 14; TEMP 36.6; O2SAT 100
[2023-12-02] MEDS: MIDODRINE HCL 2.5 MG TABLET 10 MG PO ×2 (08:20→13:34)
[2023-12-02] MEDS: FERROUS SULFATE 325 MG TABLET DR BY MOUTH ×2 (08:36→16:35)
[2023-12-02] MEDS: HYDROCORTISONE 10 MG TABLET PO ×2 (09:05→16:35)
[2023-12-02] MEDS: POTASSIUM/PHOSPHORUS/SODIUM 1.5 GM PACKET 1 PACKET PO (09:33)
[2023-12-02] MEDS: PANTOPRAZOLE 40 MG TABLET PO (09:34)
[2023-12-02] MEDS: ROSUVASTATIN 10 MG TABLET 20 MG PO (09:34)
[2023-12-02] MEDS: aMILoride HCL 5 MG TABLET PO ×2 (09:34→16:35)
[2023-12-02] MEDS: GABAPENTIN 100 MG CAPSULE PO ×3 (09:34→16:35)
[2023-12-02] MEDS: polyethylene glycoL 3350 17 GM POWD.PACK PO (09:34)
[2023-12-02] MEDS: APIXABAN 2.5 MG TABLET 5 MG PO ×2 (09:34→16:35)
[2023-12-02] MEDS: BUMETANIDE 1 MG TABLET 2 MG PO ×2 (09:35→16:35)
[2023-12-02] MEDS: CHOLECALCIFEROL 5,000 UNITS TABLET 5000 UNITS PO (09:35)
[2023-12-02] MEDS: THIAMINE HCL 100 MG TABLET PO (09:35)
[2023-12-02] MEDS: FOLIC ACID 1 MG TABLET PO (09:35)
[2023-12-02 15:44] VITALS: BP 102/64; PULSE 87; RESP 14; TEMP 36.6; O2SAT 87
[2023-12-03] VITALS: BP 91/48; PULSE 82; RESP 16; TEMP 36.5; O2SAT 98
[2023-12-03] MEDS: LEVOTHYROXINE SODIUM 25 MCG TABLET PO (06:00)
[2023-12-03 08:00] VITALS: BP 114/74; PULSE 78; RESP 16; TEMP 36.8; O2SAT 100
--- NOTE | 2023-12-03 08:13 | PM.IMPN ---
Progress Note: A&P Assessment and Plan (1) Generalized weakness: Code(s): R53.1 - Weakness Status: Acute Assessment and Plan: Continue PT and OT Care conference today 14 day recert ordered. 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 She has been working with therapy and has made some good progress however therapy feels that she would benefit from continued rehab to help her progress with her distance ambulating before she is able to go home. She has a care conference today. On examination today patient is alert and oriented x3, sitting in the chair. She feels that she has made good progress so far during her stay. Labs from 11/30/23 shown Hgb 8.1, Hct 26.0, K+ 3.2, Creatinine 1.06, Alk phos 205, Ca+ 8.2, Albumin 1.8. She continues on Eliquis for PE. She denies any fever, chills, nausea, vomiting, diarrhea, abdominal pain, chest pain, shortness of breath, or headaches. She denies any pain or discomfort at this time. Review of Systems Review of Systems: All systems reviewed & are unremarkable except as noted in HPI and below Constitutional: Constitutional: Reports as per HPI and Reports no additional constitutional complaints Eyes: Eyes: Reports as per HPI and Reports no additional eye complaints ENT: Reports system reviewed and no additional complaints, except as documented and Reports as per HPI Cardiovascular: Cardiovascular: Reports as per HPI and Reports no additional cardiovascular complaints Respiratory: Respiratory: Reports as per HPI and Reports no additional respiratory complaints Gastrointestinal: Gastrointestinal: Reports as per HPI and Reports no additional gastrointestinal complaints Genitourinary: Genitourinary: Reports no additional female genitourinary complaints and Reports as per HPI Musculoskeletal: Musculoskeletal: Reports no additional musculoskeletal complaints and Reports as per HPI Integumentary/Breasts: Skin/Breast: Reports system reviewed and no additional complaints, except as docu and Reports as per HPI Neurologic: Reports system reviewed and no additional complaints, except as documented and Reports as per HPI Psychiatric: Psychiatric: Reports no additional psychiatric complaints and Reports as per HPI Exam Narrative: General: In no acute distress, well nourished Head: atraumatic, no encephalopathy Eyes: EOMI, PERRLA, sclera clear ENT: moist mucous membranes, nasal passages clear Neck: supple, no JVD, no adenopathy, trachea midline Cardiac: Normal S1 and S2. No murmur, gallops or friction rubs, peripheral pulses intact. Respiratory: Lungs clear to auscultation, no adventitious lung sounds Gastrointestinal: soft, non-distended, non-tender, normoactive bowel sounds. Reports a BM this morning. : voiding without difficulty. Extremities: moves all extremities well, 1-2+ pitting edema in bilateral lower legs and feet Skin: clean, dry, intact. No wounds or lesions. Neuro: Alert and oriented x4, cranial nerves intact, no neuro deficits. Psych: normal mood, normal affect,
[2023-12-03] MEDS: MIDODRINE HCL 2.5 MG TABLET 10 MG PO ×3 (08:14→17:24)
[2023-12-03] MEDS: POTASSIUM/PHOSPHORUS/SODIUM 1.5 GM PACKET 1 PACKET PO (09:04)
[2023-12-03] MEDS: polyethylene glycoL 3350 17 GM POWD.PACK PO (09:04)
[2023-12-03] MEDS: APIXABAN 2.5 MG TABLET 5 MG PO ×2 (09:05→17:22)
[2023-12-03] MEDS: aMILoride HCL 5 MG TABLET PO ×2 (09:05→17:25)
[2023-12-03] MEDS: ROSUVASTATIN 10 MG TABLET 20 MG PO (09:05)
[2023-12-03] MEDS: GABAPENTIN 100 MG CAPSULE PO ×3 (09:05→17:25)
[2023-12-03] MEDS: CHOLECALCIFEROL 5,000 UNITS TABLET 5000 UNITS PO (09:05)
[2023-12-03] MEDS: HYDROCORTISONE 10 MG TABLET PO ×2 (09:05→17:25)
[2023-12-03] MEDS: FOLIC ACID 1 MG TABLET PO (09:06)
[2023-12-03] MEDS: THIAMINE HCL 100 MG TABLET PO (09:06)
[2023-12-03] MEDS: PANTOPRAZOLE 40 MG TABLET PO (09:06)
[2023-12-03] MEDS: BUMETANIDE 1 MG TABLET 2 MG PO ×2 (09:06→17:25)
[2023-12-03] MEDS: FERROUS SULFATE 325 MG TABLET DR BY MOUTH ×2 (09:07→17:25)
[2023-12-03 16:00] VITALS: BP 125/72; PULSE 78; RESP 18; TEMP 36.6; O2SAT 96
--- NOTE | 2023-12-03 16:59 | PC.NURSE ---
l heel has a wound that is 1.4x1.2.0.2 pink edges and pink/yellow center. denies pain but is tender if touched. new aqua cell applied.
[2023-12-03 19:53] VITALS: PULSE 78; RESP 18; O2SAT 96
[2023-12-04] VITALS: BP 124/73; PULSE 87; RESP 16; TEMP 36.9; O2SAT 97
[2023-12-04] MEDS: LEVOTHYROXINE SODIUM 25 MCG TABLET PO (05:11)
[2023-12-04 08:00] VITALS: BP 100/64; PULSE 78; RESP 16; TEMP 36.8; O2SAT 100
[2023-12-04] MEDS: FERROUS SULFATE 325 MG TABLET DR BY MOUTH ×2 (09:00→17:11)
[2023-12-04] MEDS: polyethylene glycoL 3350 17 GM POWD.PACK PO (09:01)
[2023-12-04] MEDS: POTASSIUM/PHOSPHORUS/SODIUM 1.5 GM PACKET 1 PACKET PO (09:01)
[2023-12-04] MEDS: HYDROCORTISONE 10 MG TABLET PO ×2 (09:02→17:12)
[2023-12-04] MEDS: APIXABAN 2.5 MG TABLET 5 MG PO ×2 (09:04→17:10)
[2023-12-04] MEDS: MIDODRINE HCL 2.5 MG TABLET 10 MG PO ×3 (09:04→15:51)
[2023-12-04] MEDS: aMILoride HCL 5 MG TABLET PO ×2 (09:04→17:11)
[2023-12-04] MEDS: CHOLECALCIFEROL 5,000 UNITS TABLET 5000 UNITS PO (09:05)
[2023-12-04] MEDS: GABAPENTIN 100 MG CAPSULE PO ×3 (09:05→17:11)
[2023-12-04] MEDS: THIAMINE HCL 100 MG TABLET PO (09:05)
[2023-12-04] MEDS: PANTOPRAZOLE 40 MG TABLET PO (09:05)
[2023-12-04] MEDS: BUMETANIDE 1 MG TABLET 2 MG PO ×2 (09:05→17:11)
[2023-12-04] MEDS: ROSUVASTATIN 10 MG TABLET 20 MG PO (09:05)
[2023-12-04] MEDS: FOLIC ACID 1 MG TABLET PO (09:05)
[2023-12-04 15:58] VITALS: BP 97/57; PULSE 87; RESP 16; TEMP 36.8; O2SAT 100
[2023-12-05] VITALS: BP 88/49; PULSE 86; RESP 20; TEMP 36.3; O2SAT 99
--- NOTE | 2023-12-05 00:15 | PC.NURSE ---
Pt resting quietly in bed and doesnt voice any c/o discomfort. Vital signs taken and pt given her phone per her request.
--- NOTE | 2023-12-05 02:19 | PC.NURSE ---
Pt up to the bathroom with the walker, gait belt and walker. Gait is slow but steady and pt voided a large amount of urine and returned to bed with the walker, gait belt and walker. Pt tolerated activity well.
--- NOTE | 2023-12-05 04:08 | PC.NURSE ---
Pt asleep and no signs of discomfort noted. Side rails up x3 and call sprague within reach.
[2023-12-05] MEDS: LEVOTHYROXINE SODIUM 25 MCG TABLET PO (06:43)
--- NOTE | 2023-12-05 06:48 | PC.NURSE ---
Pt given synthroid PO as ordered. Pt assisted to the bathroom with the walker, gait belt and standby assist of one. Pt returned to the chair and was assisted with AM grooming.
[2023-12-05 07:35] VITALS: BP 92/55; PULSE 95; RESP 16; TEMP 36.3; O2SAT 96
[2023-12-05] MEDS: FERROUS SULFATE 325 MG TABLET DR BY MOUTH ×2 (08:55→17:02)
[2023-12-05] MEDS: POTASSIUM/PHOSPHORUS/SODIUM 1.5 GM PACKET 1 PACKET PO (08:55)
[2023-12-05] MEDS: APIXABAN 2.5 MG TABLET 5 MG PO ×2 (08:56→17:05)
[2023-12-05] MEDS: BUMETANIDE 1 MG TABLET 2 MG PO ×2 (08:57→17:02)
[2023-12-05] MEDS: HYDROCORTISONE 10 MG TABLET PO ×2 (08:57→17:06)
[2023-12-05] MEDS: GABAPENTIN 100 MG CAPSULE PO ×3 (08:57→17:07)
[2023-12-05] MEDS: FOLIC ACID 1 MG TABLET PO (08:58)
[2023-12-05] MEDS: PANTOPRAZOLE 40 MG TABLET PO (08:58)
[2023-12-05] MEDS: THIAMINE HCL 100 MG TABLET PO (08:58)
[2023-12-05] MEDS: CHOLECALCIFEROL 5,000 UNITS TABLET 5000 UNITS PO (08:58)
[2023-12-05] MEDS: aMILoride HCL 5 MG TABLET PO ×2 (08:58→17:03)
[2023-12-05] MEDS: ROSUVASTATIN 10 MG TABLET 20 MG PO (08:58)
[2023-12-05] MEDS: MIDODRINE HCL 2.5 MG TABLET 10 MG PO ×2 (13:00→17:06)
[2023-12-05 16:00] VITALS: BP 100/58; PULSE 88; RESP 16; TEMP 36.6; O2SAT 100
--- NOTE | 2023-12-05 17:13 | PC.NURSE ---
Patient up in chair. Call llight and belongings within reach. Patient alert and oriented x4. Able to take medications without difficulty.
--- NOTE | 2023-12-05 18:10 | PC.NURSE ---
Patient up in chair. Fed self supper. Call light and belongings within reach. Denies c/o.
[2023-12-06] VITALS: BP 93/57; PULSE 86; RESP 20; TEMP 36.6; O2SAT 98
--- NOTE | 2023-12-06 00:16 | PC.NURSE ---
Pt resting quietly in bed and watching TV. Pt's respirations are even and unlabored and pt doesnt voice any c/o discomfort.
--- NOTE | 2023-12-06 04:17 | PC.NURSE ---
Pt up to the bathroom with the walker, gait belt and standby assist of one. Pt voided and returned to bed with the walker, gait belt and standby assist of one. Pt tolerated activity well. Pt assisted to repositioning to comfort and side rails up x3 and call sprague within reach.
--- NOTE | 2023-12-06 04:25 | PC.NURSE ---
Pt asleep and no signs of discomfort noted.
--- NOTE | 2023-12-06 06:30 | PC.NURSE ---
Pt given synthroid as ordered; pt assisted to the BR with the walker, gait belt and standby assist. Pt voided and returned to the chair per her request. Pt assisted with AM oral care at this time.
[2023-12-06] MEDS: LEVOTHYROXINE SODIUM 25 MCG TABLET PO (06:31)
[2023-12-06 07:35] VITALS: BP 96/65; PULSE 98; RESP 16; TEMP 35.9; O2SAT 100
[2023-12-06] MEDS: polyethylene glycoL 3350 17 GM POWD.PACK PO (08:38)
[2023-12-06] MEDS: FERROUS SULFATE 325 MG TABLET DR BY MOUTH ×2 (08:38→16:43)
[2023-12-06] MEDS: PANTOPRAZOLE 40 MG TABLET PO (08:38)
[2023-12-06] MEDS: POTASSIUM/PHOSPHORUS/SODIUM 1.5 GM PACKET 1 PACKET PO (08:38)
[2023-12-06] MEDS: BUMETANIDE 1 MG TABLET 2 MG PO ×2 (08:38→16:43)
[2023-12-06] MEDS: ROSUVASTATIN 10 MG TABLET 20 MG PO (08:38)
[2023-12-06] MEDS: APIXABAN 2.5 MG TABLET 5 MG PO ×2 (08:38→16:44)
[2023-12-06] MEDS: THIAMINE HCL 100 MG TABLET PO (08:39)
[2023-12-06] MEDS: aMILoride HCL 5 MG TABLET PO ×2 (08:39→16:44)
[2023-12-06] MEDS: HYDROCORTISONE 10 MG TABLET PO ×2 (08:39→16:43)
[2023-12-06] MEDS: CHOLECALCIFEROL 5,000 UNITS TABLET 5000 UNITS PO (08:39)
[2023-12-06] MEDS: FOLIC ACID 1 MG TABLET PO (08:39)
[2023-12-06] MEDS: GABAPENTIN 100 MG CAPSULE PO ×3 (08:39→16:43)
[2023-12-06] MEDS: MIDODRINE HCL 2.5 MG TABLET 10 MG PO ×3 (08:45→16:43)
--- NOTE | 2023-12-06 11:09 | PM.IMPN ---
Progress Note: A&P Assessment and Plan (1) Generalized weakness: Code(s): R53.1 - Weakness Status: Acute Assessment and Plan: Swing bed admission for PT OT for generalized weakness PT/OT evaluate and treat (2) Pulmonary embolism: Code(s): I26.99 - Other pulmonary embolism without acute cor pulmonale Status: Acute Assessment and Plan: Continue Eliquis b.i.d. monitor for Anemia weekly (3) snf current use of anticoagulant: Code(s): Z79.01 - snf (current) use of anticoagulants Status: Acute Assessment and Plan: Continue Eliquis (4) Urinary retention: Code(s): R33.9 - Retention of urine, unspecified Status: Resolved (5) Hypothyroidism: Code(s): E03.9 - Hypothyroidism, unspecified Status: Acute Assessment and Plan: Continue Synthroid Subjective Date/time seen: 12/06/23 11:09 Interval history: This is a 68 year old female who is here for rehab which was started on 11/21/23 after having a prolonged hospitalization for multifocal pneumonia and pulmonary embolism. She has been working with therapy and has made some good progress however therapy feels that she would benefit from continued rehab to help her progress with her distance ambulating before she is able to go home. She has a care conference today. On examination today patient is alert and oriented x3, sitting in the chair. She feels that she has made good progress so far during her stay. Labs from 11/30/23 shown Hgb 8.1, Hct 26.0, K+ 3.2, Creatinine 1.06, Alk phos 205, Ca+ 8.2, Albumin 1.8. She continues on Eliquis for PE. She denies any fever, chills, nausea, vomiting, diarrhea, abdominal pain, chest pain, shortness of breath, or headaches. She denies any pain or discomfort at this time. Exam Narrative: GENERAL: Well-appearing, well-nourished, and in no acute distress. HEAD: Normocephalic, atraumatic. ENT:? Mucous membranes moist. CHEST: Clear to auscultation.? No respiratory distress. HEART: Regular rate and rhythm. ? Normal peripheral pulses. ABDOMEN: Soft, nontender, nondistended. Bach catheter in place with slightly cloudy yellow urine EXTREMITIES: Normal range of motion. Bilateral mild lower extremity edema. Heel pressure ulcer skin intact SKIN: Warm dry normal color NEURO: Alert and oriented x3. PSYCH: Normal mood and affect Objective Data Vital Signs Vital Signs: Vital Signs - 24 hr 12/05/23 16:00 12/06/23 00:00 Temperature 97.9 F 97.9 F Pulse Rate 88 86 Respiratory Rate 16 20 Blood Pressure 100/58 L 93/57 L Pulse Oximetry 100 98 Oxygen Delivery Room Air Room Air Intake/Output Intake/Output: Intake & Output 12/03/23 12/04/23 12/05/23 12/06/23 23:59 23:59 23:59 23:59 Intake Total 2079 1580 1555 350 Output Total 0 Balance 2079 1580 1555 350 Meds/Results Medications: Active Medications Generic Name Dose Route Start Last Admin Trade Name Freq PRN Reason Stop Dose Admin Acetaminophen 650 mg 11/21/23 10:47 Acetaminophen 325 Mg Tablet PO Q4H PRN Pain Alendronate Sodium 70 mg 12/01/23 06:30 12/01/23 06:55 Alendronate Sodium 70 Mg Tablet PO 70 mg Q7D@0630 LAMBERTO Administration Amiloride HCl 5 mg 11/21/23 17:00 12/06/23 08:39 Amiloride Hcl 5 Mg Tablet PO 5 mg BID LAMBERTO Administration Apixaban 5 mg 11/21/23 17:00 12/06/23 08:38 Apixaban 2.5 Mg Tablet PO 5 mg BID LAMBERTO Administration Bisacodyl 10 mg 11/21/23 10:47 Bisacodyl 10 Mg Suppository RECTAL DAILY PRN Constipation Bumetanide 2 mg 11/21/23 17:00 12/06/23 08:38 Bumetanide 1 Mg Tablet PO 2 mg BID LAMBERTO Administration Ferrous Sulfate 325 mg 11/21/23 17:00 12/06/23 08:38 Ferrous Sulfate [address] BY MOUTH 325 mg BIDWM LAMBERTO Administration Folic Acid 1 mg 11/22/23 09:00 12/06/23 08:39 Folic Acid 1 Mg Tablet PO 1 mg DAILY LAMBERTO Administration Gabapentin 100 mg 11/21/23
--- NOTE | 2023-12-06 11:21 | PM.DS ---
DS: Admitting Diagnosis Discharge Date 12/06/2022 Admitting Diagnosis Swing Bed, Weakness, Pulmonary Embolus DS: Discharge Diagnosis Discharge Diagnosis (1) Peripheral edema: Code(s): R60.0 - Localized edema Status: Acute Assessment and Plan: keep legs elevated (2) Generalized weakness: Code(s): R53.1 - Weakness Status: Acute Assessment and Plan: Patient will continue with home exercise and will participate with outpatient physical therapy. 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: Code(s): Z79.01 - keno terminal operator (current) use of anticoagulants Status: Acute Assessment and Plan: Patient is in need of long term acute care registered nurse anticoagulation as she has had a massive pulmonary embolus and will need this medication for a while will monitor her anemia by PCP (4) Pulmonary embolism: Code(s): I26.99 - Other pulmonary embolism without acute cor pulmonale Status: Acute Assessment and Plan: care home anticoagulation Plan hypotension continue midorin tid DS: Summary Hospital Course Reason for hospitalization: Pulmonary Embolus, Weakness, Swing Hospital Course: This is a 68 year old female that was admitted after a extensive hospitalization for a massive pulmonary embolus. Due to deconditioning patient was unable to ambulate upon arrival. While here patient worked with physical therapy and she is able to ambulate with walker and assist with her activity of daily living Mrs Chacon although still requiring some physical therapy is able to return home and with participate in outpatient physical therapy. She will require care home anticoagulation with her primary care provider to monitor her anemia status. Patient lives at home with her who will assist with her care. Time Spent with Patient Time attestation: Total time spent providing and/or coordinating discharge services: Exam Narrative: GENERAL:? Well-appearing, well-nourished, and in no acute distress. HEAD:? Normocephalic, atraumatic. ENT:? Mucous membranes moist. CHEST:? Clear to auscultation.? No respiratory distress. HEART:? Regular rate and rhythm. ? Normal peripheral pulses. ABDOMEN: Soft, nontender, nondistended.? Bach catheter in place with slightly cloudy yellow urine EXTREMITIES:? Normal range of motion.? Bilateral mild lower extremity edema.? Heel pressure ulcer skin intact heel protector on right foot SKIN:? Warm dry normal color NEURO:? Alert and oriented x3. PSYCH:? Normal mood and affect Discharge Plan Discharge Attending physician on discharge: Deo Grijalva Consulting providers: Erasto Rose; Ellis Gardner; Karon Orozco Discharging Clinician: Erasto Rose Anticipated Discharge Date/Time: 12/06/23 11:00 Patient Disposition: Home Health Service Activity: march shower Diet: as tolerated and heart healthy Wound Care Instructions: follow printed instructions Discharge Instructions: Drink plenty of fluids You will have outpatient PT/OT Your primary care provider will need to send the orders for PT/OT. Make sure that you take your medication as ordered. Keep all previous schedule MD appointment that you have had scheduled Patient Instructions: Antibiotic Form, Midodrine (By mouth), Amiloride (By mouth), Pulmonary Embolism (DC), Fall Prevention for Older Adults (DC), Cholesterol and Your Health (GEN), Diabetic Neuropathy (DC), Weakness (DC), Hyperlipidemia (DC) Stand Alone Forms: General Discharge Information Follow-up/Referrals: Katrina,MD Aldo [Non-Staff] - Call for Appointment (Follow up with primary MD in 1-2 weeks. Please call and make appt.) Discharge Medications: Continued bisacodyl [Dulcolax (bisacodyl)] 10 mg Suppository 10 mg RECTAL DAILY PRN (Reason: Constipation) apixaban 5 mg Tablet 5 mg PO BID acetaminophen 325 mg Tablet 650 mg PO Q4H PRN (Reason: Pain) miconazole nitrate 2 % Cream
[2023-12-06 16:15] VITALS: BP 100/60; PULSE 95; RESP 16; TEMP 36.4; O2SAT 99
--- NOTE | 2023-12-06 17:00 | PC.NURSE ---
Patients here to transport her home. Patient being discharged home with outpatient PT/OT. All discharge instructions and education reviewed with patient and . All questions answered. Both parties state understanding and deny further questions. All belongings gathered and sent home with patient. Patient had no IV access at time of discharge. Patient transferred from chair to wheelchair with 1 assist. This nurse accompanied patient to front door via wheelchair, left via private vehicle with .
--- NOTE | 2023-12-10 10:39 | PC.NURSE ---
Understood dc instructions, after going over meds at home, realized she didn't have some of them, list obtained and will be called in for patient by Daren Gardner NP to [facility] choice[facility].
== END 2023-12-06 17:00 | disposition home health service (06) | DRG 947 ==
PROVIDERS: Nurse Practitioner; Nurse Practitioner Family; Admitting Provider Internal Medicine; Visit Provider Internal Medicine
DX: R53.1 Weakness (principal); I26.99 Other pulmonary embolism without acute cor pulmonale; I50.9 Heart failure, unspecified; D64.9 Anemia, unspecified; E11.9 Type 2 diabetes mellitus without complications; E03.9 Hypothyroidism, unspecified; R33.9 Retention of urine, unspecified; I25.2 Old myocardial infarction; Z79.01 Long term (current) use of anticoagulants
CPT/HCPCS: 36415; 80048; 80053; 82607; 82746; 83540; 83550; 85025; 85027; 97110; 97112; 97161; 97165; 97530; 97535; A9270

== ENCOUNTER 2023-12-29 10:06 | Outpatient (RCR) | payer MEDICARE, SELFPAY ==
--- NOTE | 2023-12-29 12:56 | OTOPEVAL1 ---
Assessment and note entered by Nati Echols OT Evaluation Information Assessment Status Evaluation Diagnosis Muscle weakness Onset 12/17/2023 Subjective Information The patient stated she does not have any UE pain or numbness/tingling. The patient reports that she has weakness in B UE and gets tired after about 10-15 minutes of daily tasks. She reports that she wants to get back to performing LB dressing, putting clothes away/doing laundry, doing light housework and increase strength. The patient reports she has been doing her exercises since discharged from hospital while at home and is trying to be as independent as possible. Reported Pain Level Pain Score 0: Self Report Assessment OT Clinical Summary The patient is a 68 year old female who was referred to outpatient OT due to muscle weakness resulting from hospitalization where the patient now experiences functional decline at home. The patient's PMH includes but is not limited to diabetes and HTN. The patient previously was independent with LB dressing, transfers from regular chair, demonstrated WNL UE strength and fine motor coordination with the ability to perform ADLs overhead with independence and without visible signs of fatigue. The patient now demonstrates ability to engage in 5 minutes of activity prior to needing a rest break, moderately impaired fine motor coordination, minimally impaired pinch strength and UE strength, and requires minimal to moderate assist with LB dressing and IADLs due to weakness and limited mobility to reach LE. The patient requires skilled OT to address these deficits and return to independence and increase safety. Plan of Care Interventions Therapeutic Exercise,Neuro Re-education, Therapeutic Activities,Electrical Stimulation,Self -Care/Home Management OT Services Indicated Yes Treatment Frequency and 3x/week for 10 visits. Duration These treatments will address the objective and functional deficits as defined above. The patient will be advanced safely and appropriately in order for the patient to progress towards his/her prior level of function. Additional exercises will be introduced and as well as a comprehensive home exercise program upon discharge, if needed, ?to ensure carryover of functional gains achieved in the clinic. This treatment plan has been reviewed and agreement upon by the patient.
--- NOTE | 2023-12-29 13:25 | OPREHPOC ---
Outpatient Therapy Plan of Care This is a Multidisciplinary Plan of Care that may contain components documented by all disciplines (PT, OT, and ST.) PT Problem 1 PT Problem #1 Knowledge Deficit PT Goal 1 Goal 1. independent and compliant with HEP Target Visit 6 PT Problem 2 PT Problem #2 Impaired Strength PT Goal 1 Goal 1. patient to perform SLR x5 bilat in supine 2. 5/5 bilateral knee strength 3. 5/5 bilateral ankle DF 4. 3+/5 or better overall bilateral hip strength Target Visit 12 PT Problem 3 PT Problem #3 Impaired Functional Mobil PT Goal 1 Goal 1. patient to complete 6 minute walk test without rest and with continued movement with WW 2. Tinetti to display 22/28 or better score 3. 5x sit to stand to be completed in less than 15 seconds 4. tug to be completed in less than 20 seconds with WW 5. no falls i0n the last 4 weeks Target Visit 12 OT Problem 1 OT Problem #1 Knowledge Deficit OT Goal 1 Goal The patient will demonstrate 100% knowledge and return demonstration for UE HEP in order to maintain strength and decrease risk of decline. Target Visit 10 OT Problem 2 OT Problem #2 Impaired Coordination OT Goal 1 Goal The patient will demonstrate increased fine motor coordination of B UE by improving 9-hole peg test score by >5 seconds in order to perform homemaking tasks independently. Target Visit 10 OT Problem 3 OT Problem #3 Impaired Endurance OT Goal 1 Goal The patient will demonstrate ability to engage in aerobic activity for >15 minutes and report <4 on RPE for dynamic standing exercises in order to increase safety during homemaking tasks. Target Visit 10 OT Problem 4 OT Problem #4 Impaired Strength OT Goal 1 Goal The patient will demonstrate increased UE strength demonstrating 5/5 muscle strength to B shoulders, elbows and demonstrate >3 lb of pinch strength with B hands in order to perform ADLs/IADLs. OT Problem 5 OT Problem #5 Impaired Functional ADLs OT Goal 1 Goal
--- NOTE | 2023-12-29 13:25 | PTOPEVAL1 ---
Assessment and note entered by JT File, PT Evaluation Information Assessment Status Evaluation Diagnosis generalized weakness Onset 12/17/23 Subjective Information patient was a skilled swing bed here in the hospital back in November. she has been home about 3 weeks. she has had 1 fall going up the ramp at home. she reports she would like to get stronger in her legs to walk further and be more steady on her feet. Reported Pain Level Pain Score 0: Self Report Pain Score 0: Self Report Assessment PT Clinical Summary mrs. lee is a 68 yo woman who presents to skilled PT services for evaluation and treatment of generalized LE weakness. she displays deficits in proximal more than distal LE strength, bed mobility independence, balance, and ambulation endurance. she would benefit from continued skilled PT to address her objective/functional deficits and progress towards a return to her prior level functional activity performance/ improved quality of life with decreased falls risk and improved independence. Plan of Care Interventions Gait Training,Neuro Re-education,Patient/Caregiver Educati,Therapeutic Activities,Therapeutic Exercise PT Services Indicated Yes Treatment Frequency and 3x weekly for 12 visits Duration These treatments will address the objective and functional deficits as defined above. The patient will be advanced safely and appropriately in order for the patient to progress towards his/her prior level of function. Additional exercises will be introduced and as well as a comprehensive home exercise program upon discharge, if needed, ?to ensure carryover of functional gains achieved in the clinic. This treatment plan has been reviewed and agreement upon by the patient.
--- NOTE | 2024-01-22 10:07 | OPREHPOC ---
Outpatient Therapy Plan of Care This is a Multidisciplinary Plan of Care that may contain components documented by all disciplines (PT, OT, and ST.) PT Problem 1 PT Problem #1 Knowledge Deficit PT Goal 1 Goal 1. independent and compliant with HEP Target Visit 6 Progress Met PT Problem 2 PT Problem #2 Impaired Strength PT Goal 1 Goal 1. patient to perform SLR x5 bilat in supine 2. 5/5 bilateral knee strength 3. 5/5 bilateral ankle DF 4. 3+/5 or better overall bilateral hip strength Target Visit 12 PT Problem 3 PT Problem #3 Impaired Functional Mobil PT Goal 1 Goal 1. patient to complete 6 minute walk test without rest and with continued movement with WW. met with cane 2. Tinetti to display 22/28 or better score. met 3. 5x sit to stand to be completed in less than 15 seconds. 4. tug to be completed in less than 20 seconds with WW. met with cane 5. no falls in the last 4 weeks. Target Visit 12 OT Problem 1 OT Problem #1 Knowledge Deficit OT Goal 1 Goal The patient will demonstrate 100% knowledge and return demonstration for UE HEP in order to maintain strength and decrease risk of decline. Target Visit 10 OT Problem 2 OT Problem #2 Impaired Coordination OT Goal 1 Goal The patient will demonstrate increased fine motor coordination of B UE by improving 9-hole peg test score by >5 seconds in order to perform homemaking tasks independently. Target Visit 10 OT Problem 3 OT Problem #3 Impaired Endurance OT Goal 1 Goal The patient will demonstrate ability to engage in aerobic activity for >15 minutes and report <4 on RPE for dynamic standing exercises in order to increase safety during homemaking tasks. Target Visit 10 OT Problem 4 OT Problem #4 Impaired Strength OT Goal 1 Goal The patient will demonstrate increased UE strength demonstrating 5/5 muscle strength to B shoulders, elbows and demonstrate >3 lb of pinch strength with B hands in order to perform
--- NOTE | 2024-01-22 10:08 | PTOPPROGNS ---
Assessment and note entered by JT File, PT Evaluation Information Assessment Status Progress Diagnosis generalized weakness Onset 12/17/23 Subjective Information patient reports she feels Good today. she reports she has no pain. she reports she has noticed difficulty still getting into and out of a car. she reports she has to use a belt to assist lift her legs. however, she reports her walking feels much improved. Assessment PT Clinical Summary mrs. lee presents to skilled PT for her 10th skilled therapy visit today. she displays improvements in balance per the Tinetti and TUG. she also displays improvement in ambulation endurance as she is able to complete 6 minute walk test without stopping to rest. she improved on the 5x sit to stand, but still shows a risk for falls due to the time to complete. she would benefit from continued skilled PT to address her remaining objective/functional deficits and goals. she would like to be able to get in and out of a car without as much assist from a gait belt. Plan of Care Interventions Gait Training,Neuro Re-education,Patient/Caregiver Educati,Therapeutic Activities,Therapeutic Exercise PT Services Indicated Yes Treatment Frequency and continue per initial POC Duration These treatments will address the objective and functional deficits as defined above. The patient will be advanced safely and appropriately in order for the patient to progress towards his/her prior level of function. Additional exercises will be introduced and as well as a comprehensive home exercise program upon discharge, if needed, ?to ensure carryover of functional gains achieved in the clinic. This treatment plan has been reviewed and agreement upon by the patient.
--- NOTE | 2024-01-26 14:42 | BUOTOPDC ---
Assessment and note entered by Nati Echols, OT Evaluation Information Assessment Status Discharge Diagnosis Muscle weakness Onset 12/17/2023 Subjective Information The patient reports that she is able to do her daily tasks independently and has used adaptive techniques for things she still needs assist for like propping her foot up when donning pants. The patient reports that she has more energy and does not need rest breaks as much. Reported Pain Level Pain Score 0: Self Report Pain Score 0: Self Report Pain Score 0: Self Report Pain Score 0: Self Report Pain Score 0: Self Report Pain Score 0: Self Report Pain Score 0: Self Report Pain Score 0: Self Report Pain Score 0: Self Report Pain Score 0: Self Report Pain Score 0: Self Report Pain Score 0: Self Report Pain Score 0: Self Report Pain Score 0: Self Report Pain Score 0: Self Report Pain Score 0: Self Report Pain Score 0: Self Report Pain Score 0: Self Report Pain Score 0: Self Report Pain Score 0: Self Report Pain Score 0: Self Report Assessment OT Clinical Summary The patient demonstrates significant progress in endurance, UE strength and fine motor coordination that has lead to increased independence with ADLs and IADLs. The patient demonstrates good tolerance for all therapeutic activities and increased endurance leading to decreased risk of falls throughout daily tasks. The patient demonstrates significant improvement and does not require skilled OT. The patient is discharged with UE HEP to maintain strength and endurance at home with good understanding. Plan of Care Interventions Therapeutic Exercise,Neuro Re-education, Therapeutic Activities,Electrical Stimulation,Self -Care/Home Management OT Services Indicated No Treatment Frequency and 3x/week for 10 visits. Duration
--- NOTE | 2024-01-27 10:55 | OPREHPOC ---
Outpatient Therapy Plan of Care This is a Multidisciplinary Plan of Care that may contain components documented by all disciplines (PT, OT, and ST.) PT Problem 1 PT Problem #1 Knowledge Deficit PT Goal 1 Goal 1. independent and compliant with HEP Target Visit 6 Progress Met PT Problem 2 PT Problem #2 Impaired Strength PT Goal 1 Goal 1. patient to perform SLR x5 bilat in supine. met 2. 5/5 bilateral knee strength. met 3. 5/5 bilateral ankle DF. met 4. 3+/5 or better overall bilateral hip strength. met Target Visit 12 Progress Met PT Problem 3 PT Problem #3 Impaired Functional Mobil PT Goal 1 Goal 1. patient to complete 6 minute walk test without rest and with continued movement with WW. met with cane 2. Tinetti to display 22/28 or better score. met 3. 5x sit to stand to be completed in less than 15 seconds. not met 4. tug to be completed in less than 20 seconds with WW. met with cane 5. no falls in the last 4 weeks. met Target Visit 12 Progress Partially Met OT Problem 1 OT Problem #1 Knowledge Deficit OT Goal 1 Goal The patient will demonstrate 100% knowledge and return demonstration for UE HEP in order to maintain strength and decrease risk of decline. Target Visit 10 Progress Met OT Problem 2 OT Problem #2 Impaired Coordination OT Goal 1 Goal The patient will demonstrate increased fine motor coordination of B UE by improving 9-hole peg test score by >5 seconds in order to perform homemaking tasks independently. Target Visit 10 Progress Partially Met OT Problem 3 OT Problem #3 Impaired Endurance OT Goal 1 Goal The patient will demonstrate ability to engage in aerobic activity for >15 minutes and report <4 on RPE for dynamic standing exercises in order to increase safety during homemaking tasks. Target Visit 10 Progress
--- NOTE | 2024-01-27 10:55 | PTOPDC ---
Assessment and note entered by JT File, PT Evaluation Information Assessment Status Discharge Diagnosis generalized weakness Onset 12/17/23 Subjective Information patient reports she feels good today. she reports she has no pain. she reports she has been compliant with walking and exercising at home. Reported Pain Level Pain Score 0: Self Report Pain Score 0: Self Report Pain Score 0: Self Report Assessment PT Clinical Summary mrs. lee presents to skilled PT services for her 12th skilled therapy visit. as of this date, she has made progress across all strength, endurance, and balance measures. she has met all goals for skilled PT, except for 5x sit to stand time. she is ready to DC skilled PT at this time, and will continue with independent HEP and walking at home. Plan of Care PT Services Indicated Yes
== END 2024-01-27 11:10 | disposition home or self-care (01) ==
LOC: CHSPT 10:06
PROVIDERS: Visit Provider Internal Medicine
DX: M62.81 Muscle weakness (generalized) (principal)
CPT/HCPCS: 97110; 97112; 97116; 97150; 97161; 97166; 97530; 97750